=== PATIENT | female | born 1950 | race Two or more races ===

== ENCOUNTER 2020-11-18 18:36 | Emergency (ER) | payer OTHER ==
[~2020-11-18] VITALS: Ht 162.6 cm; Wt 73.5 kg
[2020-11-18] MEDS ORDERED: TOPROL XL50 M1 PO (18:51)
[2020-11-18] MEDS ORDERED: METFORMIN HCL500 M3 PO (18:51)
[2020-11-18] MEDS ORDERED: GLIPIZIDE XL5 MG PO (18:51)
[2020-11-18] MEDS ORDERED: SIMVASTATIN5 MG PO (18:52)
== END 2020-11-18 21:57 | disposition home or self-care (01) ==
LOC: ER 18:36
DX: U07.1 COVID-19 (principal)